=== PATIENT | female | born 1970 | race Caucasian/White ===

== ENCOUNTER → 2018-06-29 | Outpatient (CLI) | payer OTHER ==
[~2018-06-29] MED LIST: HCTZ 25MG TAB25 MG PO; KLOR-CON 88 MEQ; LEXAPRO20 MG PO; LORTAB 7.5/5001 TAB; VOLTAREN-XR100 MG PO; VYVANSE60 MG PO
== END ==
LOC: MC.RAD 13:53
DX: Z12.31 Encounter for screening mammogram for malignant neoplasm of breast (principal); Z80.3 Family history of malignant neoplasm of breast